=== PATIENT | female | born 1995 | race Caucasian/White ===

== ENCOUNTER 2020-12-12 22:33 | Observation (INO) | payer MEDICAID ==
[~2020-12-12] VITALS: Ht 162.6 cm; Wt 59.2 kg
--- NOTE | 2020-12-12 22:54 | NUR ---
"I HAVE THIS PAIN IN MY STOMACH THAT STARTED YESTERDAY [id number] AND I WAS IN TEARS CAUSE IT HURT SO MUCH" PT REPORTS PAIN IN RIGHT LOWER QUADRANT, +N/V, DENIES DIARRHEA. SUSAN MACEDO AT BS FOR EVAL AND POC. PT PLACED ON SPO2/BP MONITORING, LABS OBTAINED. WCTM
[2020-12-12] MEDS ORDERED: MORPHINE SULFATE 4 MG/ML, 1ML IVPush PRN (23:00)
[2020-12-12] MEDS ORDERED: SODIUM CHLORIDE 0.9% 1,000ML IVBOLUS ONE (23:00)
[2020-12-12] MEDS ORDERED: ONDANSETRON 2MG/ML, 2ML IVPush ONE (23:00)
[2020-12-12] MEDS ORDERED: SODIUM CHLORIDE FLUSH 10ML SYR IVF ONE (23:00)
[2020-12-12 23:08] LABS: BASOPHILS % (AUTO) 0 % (0-1); EOSINOPHILS % (AUTO) 2 % (1-7); LYMPHOCYTES % (AUTO) 29 % (22-44); MEAN CORPUSCULAR HEMOGLOBIN 29.6 pg (27.0-34.8); MEAN CORPUSCULAR HGB CONC 33.9 g/dL (32.4-35.8); MEAN PLATELET VOLUME 8.3 fL (7.4-10.4); MONOCYTES % (AUTO) 9 % (2-9); NEUTROPHILS % (AUTO) 60 % (42-75); PLATELET COUNT 236 x10^3/uL (130-400); RED BLOOD COUNT 4.54 x10^6/uL (3.82-5.3); RED CELL DISTRIBUTION WIDTH 13.2 % (9.6-15.2)
[2020-12-12 23:10] LABS: MD NO
[2020-12-12] MEDS ORDERED: MORPHINE SULFATE 4 MG/ML, 1ML ONE (23:12)
[2020-12-12] MEDS ORDERED: ONDANSETRON 2MG/ML, 2ML ONE (23:13)
[2020-12-12 23:21] LABS: ALANINE AMINOTRANSFERASE 28 U/L (12-78); ALBUMIN 3.7 g/dL (3.4-5.0); ANION GAP 6 mmol/L (5-15); CALCIUM 8.3 mg/dL (8.5-10.1); CHLORIDE 111 mmol/L (98-107)
[2020-12-12 23:25] LABS: ALKALINE PHOSPHATASE 68 U/L (45-117); BILIRUBIN,TOTAL 0.4 mg/dL (0.2-1.0); TOTAL PROTEIN 6.6 g/dL (6.4-8.2)
--- NOTE | 2020-12-12 23:36 | NUR ---
PT MEDICATED PER MAR FOR PAIN, TO CT AT THIS TIME, NAD, APPEARS SLIGHTLY MORE COMFORTABLE, BED IN LOWEST, RAILS ENGAGED.
[2020-12-12] MEDS ORDERED: OMNIPAQUE 350 MG/ML, 100ML BOTTLE ONE (23:40)
[2020-12-13 00:05] LABS: MICROSCOPIC INDICATED
[2020-12-13] MEDS ORDERED: PIPERACILLIN/TAZO/PMX 3.375GM 50 ML ONE (00:28)
[2020-12-13] MEDS ORDERED: PIPERACILLIN/TAZO/PMX 3.375GM 50 ML IV ONE (00:30)
[2020-12-13] MEDS ORDERED: BUPIVACAINE/PF 0.25% ONE (00:51)
[2020-12-13] MEDS ORDERED: EPINEPHRINE 1 MG/ML, 1ML ONE (00:51)
[2020-12-13] MEDS ORDERED: ONDANSETRON 2MG/ML, 2ML IVPush PRN ×2 (01:00→07:00)
[2020-12-13] MEDS ORDERED: SODIUM CHLORIDE FLUSH 10ML SYR IVF PRN (01:00)
[2020-12-13] MEDS ORDERED: MORPHINE SULFATE 4 MG/ML, 1ML IVPush PRN (01:00)
[2020-12-13] MEDS ORDERED: PROMETHAZINE 25 MG/ML, 1ML IM PRN (01:00)
[2020-12-13] MEDS ORDERED: NS + 20MEQ KCL 1,000 ML IV ONE (01:00)
--- NOTE | 2020-12-13 01:09 | NUR ---
REPORT CALLED, PT TRANSFERRED TO THE FLOOR AT THIS TIME. PT NAD, RESTING ON GURNEY, DENIES ADDITIONAL QUESTIONS OR NEEDS.
[2020-12-13 01:45] VITALS: BP 136/85
[2020-12-13] MEDS ORDERED: BUPIVACAINE/PF-EPI 0.25% 1:200K IM ONE (05:08)
[2020-12-13] MEDS ORDERED: FENTANYL PF 250 MCG/5ML ONE (06:15)
[2020-12-13] MEDS ORDERED: MIDAZOLAM 1 MG/ML, 2ML ONE (06:15)
[2020-12-13] MEDS ORDERED: ROCURONIUM 10MG/ML,5ML ONE (06:15)
[2020-12-13] MEDS ORDERED: DEXAMETHASONE 4 MG/ML, 1ML ONE (06:18)
[2020-12-13] MEDS ORDERED: CEFOTETAN 2 GM ONE (06:18)
[2020-12-13] MEDS ORDERED: ONDANSETRON 2MG/ML, 2ML ONE (06:18)
[2020-12-13] MEDS ORDERED: SUGAMMADEX 200 MG/2 ML IVPush ONE (06:18)
[2020-12-13] MEDS ORDERED: PROPOFOL 10 MG/ML, 20ML ONE (06:18)
[2020-12-13] MEDS ORDERED: HYDR-1067 PO (06:20)
[2020-12-13] MEDS ORDERED: FENTANYL PF 100 MCG/2ML IV PRN (07:00)
[2020-12-13] MEDS ORDERED: PROMETHAZINE 12.5 MG SUPP PR PRN (07:00)
[2020-12-13] MEDS ORDERED: ALBUTEROL SULFATE 2.5 MG/3 ML NPPB PRN (07:00)
[2020-12-13] MEDS ORDERED: OXYcodone 5 MG/5 ML ORAL.SOL UDC PO PRN (07:00)
[2020-12-13] MEDS ORDERED: hydrALAzine 20 MG/ML, 1ML IV PRN (07:00)
[2020-12-13] MEDS ORDERED: ACETAMINOPHEN 325 MG TABLET PO PRN (07:00)
[2020-12-13] MEDS ORDERED: LABETALOL 5MG/ML, 20ML IV PRN (07:00)
[2020-12-13] MEDS ORDERED: EPHEDRINE 50 MG/ML, 1ML IVPush PRN (07:00)
[2020-12-13] MEDS ORDERED: HYDROmorphone 1 MG/ML, 1ML INJ IVPush PRN (07:00)
[2020-12-13] MEDS ORDERED: PROMETHAZINE 25 MG/ML, 1ML IVPush PRN (07:00)
[2020-12-13] MEDS ORDERED: DIPHENHYDRAMINE 50 MG/ML, 1ML IVPush PRN ×2 (07:00)
[2020-12-13] MEDS ORDERED: MIDAZOLAM 1 MG/ML, 2ML IV PRN (07:00)
[2020-12-13] MEDS ORDERED: MEPERIDINE/PF 25MG/0.5ML IVPush PRN (07:00)
[2020-12-13] MEDS ORDERED: DIAZEPAM 5 MG/ML, 2ML IVPush PRN (07:00)
[2020-12-13] MEDS ORDERED: FENTANYL PF 100 MCG/2ML ONE (07:15)
[2020-12-13] MEDS ORDERED: ACETAMINOPHEN 650 MG/20.3 ML UDC ONE (07:27)
[2020-12-13] MEDS ORDERED: OXYcodone 5 MG/5 ML ORAL.SOL UDC ONE (07:28)
[2020-12-13 08:00] VITALS: BP 113/63
[2020-12-13] MEDS ORDERED: HYDROcodone/APAP 5/325 TABLET PO PRN (08:30)
[2020-12-13 12:10] VITALS: BP 118/60
== END 2020-12-13 12:50 | disposition home or self-care (01) ==
LOC: ED 23:03 → 4NE 12-13 01:06 → INTOOBSV 12-13 01:06 → DCLOUNGE 12-13 12:35
PROVIDERS: ADMIT Surgery; ATTEND Surgery
DX: K35.80 Unspecified acute appendicitis (principal); Z20.822 Contact with and (suspected) exposure to COVID-19; F17.200 Nicotine dependence, unspecified, uncomplicated; Z79.899 Other long term (current) drug therapy
CPT/HCPCS: 36415; 44970; 74177; 80053; 81001; 84703; 85025; 87086; 87635; 88304; 96361; 96365; 96375; 99285; G0378; J0171; J1100; J2250; J2270; J2405; J2543; J2704; J3010; J3480; J7030; Q9967